=== PATIENT | male | born 1960 | race Two or more races ===

== ENCOUNTER 2021-02-12 20:55 | Emergency (ER) | payer OTHER ==
[2021-02-12] MEDS ORDERED: HYDRALAZINE HCL 20 MG/ML VIAL IV STA (21:59)
[2021-02-12] MEDS ORDERED: HYDRALAZINE HCL 20 MG/ML VIAL ONE (22:21)
[2021-02-12] MEDS ORDERED: NORVASC10 MG PO (22:42)
[2021-02-12 23:05] VITALS: BP 149/69
== END 2021-02-12 23:05 | disposition home or self-care (01) ==
LOC: FSED 22:03
DX: I10 Essential (primary) hypertension (principal)
CPT/HCPCS: 80053; 85025; 99283; J0360